=== PATIENT | male | born 1985 | race Caucasian/White ===

== ENCOUNTER 2018-03-07 07:11 | Day surgery (SDC) | payer OTHER ==
[~2018-03-07] VITALS: Ht 170.2 cm; Wt 83.7 kg
[~2018-03-07 07:11] MED LIST: BUNAVAIL; CLOT1TC TOP; DELTASONE20 MG; MONT10T PO; OMEP40CA12 PO; PSEU120ER PO; RXTRAM50 PO; SULF500; SULTRIDS PO
--- NOTE | 2018-03-07 07:57 | NUR ---
03/07/18 0757 Cassidy Cowart 1ST IV ATTEMPT IN RH UNSUCCESSFUL, STARTED BY MARISA OROZCO 2ND IV ATTEMPT IN RAC SUCCESSFUL, STARTED BY MARISA OROZCO
== END 2018-03-07 09:55 | disposition home or self-care (01) ==
LOC: ORSCSDS 07:11
PROVIDERS: Internal Medicine Gastroenterology
PROC: 0DBP8ZX Excision of Rectum, Via Natural or Artificial Opening Endoscopic, Diagnostic (ICD-10-PCS; principal; 2018-03-07 08:45)
PROC: 0DBE8ZX Excision of Large Intestine, Via Natural or Artificial Opening Endoscopic, Diagnostic (ICD-10-PCS; principal; 2018-03-07 08:45)
DX: K51.90 Ulcerative colitis, unspecified, without complications (principal); F17.210 Nicotine dependence, cigarettes, uncomplicated; I10 Essential (primary) hypertension; Z79.899 Other long term (current) drug therapy
CPT/HCPCS: 88305; J7120

== ENCOUNTER 2023-01-24 11:35 | Emergency (ER) | payer OTHER ==
[~2023-01-24] VITALS: Ht 175.3 cm; Wt 81.7 kg
[2023-01-24 12:01] VITALS: BP 156/101
[2023-01-24] MEDS ORDERED: Cephalexin500 M1 PO (12:24)
== END 2023-01-24 13:04 | disposition home or self-care (01) ==
LOC: ER 11:35
DX: S51.811D Laceration without foreign body of right forearm, subsequent encounter (principal); S51.812D Laceration without foreign body of left forearm, subsequent encounter; L03.113 Cellulitis of right upper limb; L03.114 Cellulitis of left upper limb; V89.2XXD Person injured in unspecified motor-vehicle accident, traffic, subsequent encounter; Z88.8 Allergy status to other drugs, medicaments and biological substances; Z88.6 Allergy status to analgesic agent; Z79.899 Other long term (current) drug therapy; F17.210 Nicotine dependence, cigarettes, uncomplicated
CPT/HCPCS: 12001; 99281

== ENCOUNTER 2023-04-12 19:31 | Emergency (ER) | payer OTHER ==
[~2023-04-12] VITALS: Ht 170.2 cm; Wt 83.9 kg
[~2023-04-12 19:31] MED LIST changes: +Cephalexin500 M1 PO
[2023-04-12 20:21] VITALS: BP 168/136
[2023-04-12] MEDS ORDERED: Bactrim Ds Tab1 EACH PO (21:38)
[2023-04-12] MEDS ORDERED: Trimethoprim/Sulfamethoxazole DS Tab PO ONE (21:40)
== END 2023-04-12 22:01 | disposition home or self-care (01) ==
LOC: ER 19:31
DX: L03.311 Cellulitis of abdominal wall (principal); L03.012 Cellulitis of left finger; L03.011 Cellulitis of right finger; F17.200 Nicotine dependence, unspecified, uncomplicated; Z88.8 Allergy status to other drugs, medicaments and biological substances; Z88.6 Allergy status to analgesic agent; Z79.899 Other long term (current) drug therapy
CPT/HCPCS: 99283; A9270